=== PATIENT | male | born 1960 | race Caucasian/White ===

== ENCOUNTER 2017-06-22 16:25 | Emergency (ER) | payer OTHER ==
[2017-06-22 16:30] VITALS: BP 103/71; PULSE 88; RESP 16; TEMP 98.4; O2SAT 95
--- NOTE | 2017-06-22 16:38 | EDPHY ---
H & P Time Seen by Provider: 06/22/17 16:32 HPI/ROS: CHIEF COMPLAINT: Acute left ankle pain HISTORY OF PRESENT ILLNESS: 49-year-old male arrives via private vehicle complaining of acute left ankle pain which occurred [PRIMARY CARE PROVIDER:][ ] REVIEW OF SYSTEMS: [A ten point review of systems was performed and is negative with the exception of the items mentioned in the HPI] PHYSICAL EXAM (Prior to examination, patient consented to physical exam, hands were washed and my usual and customary physical exam procedures followed) 1) GENERAL: [Well-developed, well-nourished, alert and oriented. Appears to be in no acute distress.] 2) HEAD: [Normocephalic] 3) HEENT: [Pupils equal, round, reactive to light bilaterally. ] 4) LUNGS: [Breathing comfortably.] 5) MUSCULOSKELETAL: [proximal tibia and fibula nontender ] . Knee, fibular head nontender. To palpation lateral malleolus. Intact skin.[5th [place] nontender ] [negative Chapman test], [compartments soft] 6) SKIN: [ intact, no tenting] 7) VASCULAR: DP,PT pulses and cap refill present and brisk DIFFERENTIAL DIAGNOSIS: [ in no particular order including but not limited to fracture, sprain, compartment syndrome] [Procedure: Crutches indications for crutch use discussed with patient. Patient fitted for crutches by ER staff. Observed ambulating with crutches. I think the patient has the capacity to safely use crutches. Usual and customary crutch walking precautions provided] Procedure: Splint A [[employer] boot ] splint was applied by ER sterile instrument technician. After application of the splint I returned and re-examined the patient. The splint was adequately immobilizing the joint and distal to the splint the patient's circulation and sensation were intact. Patient shows no signs of compartment syndrome. Was given orthopedic precautions. Smoking Status: Never smoked Constitutional: Initial Vital Signs Temperature (C) 36.9 C 06/22/17 16:28 Heart Rate 88 06/22/17 16:28 Respiratory Rate 16 06/22/17 16:28 Blood Pressure 103/71 06/22/17 16:28 O2 Sat (%) 95 06/22/17 16:28 O2 Delivery Mode Room Air Allergies/Adverse Reactions: No Known Allergies Allergy (Unverified 06/22/17 16:30) Home Medications: Medication Instructions Recorded oxyCODONE/APAP 5/325 [Percocet 1 tab PO Q6 #10 tab 06/22/17 5/325] MDM/Departure - Depart Disposition: Home, Routine, Self-Care Clinical Impression: Closed fracture of left distal fibula Qualifiers: Encounter type: initial encounter Fracture morphology: other fracture Qualified Code(s): S82.832A - Other fracture of upper and lower end of left fibula, initial encounter for closed fracture Condition: Good Instructions: Ankle Fracture (ED) Additional Instructions: Return to the ER immediately if you experience discoloration, have worsening pain, numbness, tingling, or any other symptoms that concern you. If you received x-rays in the emergency department today, be advised, that ligamentous , tendon, muscular, and other non-bony injury cannot be fully ruled out. Try to keep your affected extremity elevated above the level of your chest, and keep cold packs on the affected area, for the next 48 hours. Prescriptions: oxyCODONE/APAP 5/325 [Percocet 5/325] 1 tab PO Q6 #10 tab Referrals: Porter Armendariz MD [Medical Doctor] - 2-3 days, call for appt.
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
[2017-06-22] MEDS ORDERED: OXYCODONE/APAP 5/325MG PREPACK#4 BTL TAKEHOME ONE (17:06)
[2017-06-22] MEDS ORDERED: HYDROCOD/APAP 5/325 PREPACK#6 BTL TAKEHOME ONE ×2 (17:13→17:15)
[2017-06-22] MEDS ORDERED: HYDROCODONE/APAP 5/325 TAB PO ONE (17:33)
[2017-06-22] MEDS ORDERED: HYDROCODONE/APAP 5/325 TAB ONE (17:33)
== END 2017-06-22 17:28 | disposition home or self-care (01) ==
DX: S82.832A Other fracture of upper and lower end of left fibula, initial encounter for closed fracture (principal); V18.4XXA Pedal cycle driver injured in noncollision transport accident in traffic accident, initial encounter; Y92.410 Unspecified street and highway as the place of occurrence of the external cause; Y99.8 Other external cause status; Y93.55 Activity, bike riding
CPT/HCPCS: L4386

== ENCOUNTER → 2017-10-24 | Outpatient (CLI) | payer OTHER | LOC: FIMAGING 09:39 | PROVIDERS: ATTEND Orthopaedic Surgery | DX: S82.65XD Nondisplaced fracture of lateral malleolus of left fibula, subsequent encounter for closed fracture with routine healing (principal); M81.0 Age-related osteoporosis without current pathological fracture ==